=== PATIENT | male | born 1945 | race Caucasian/White ===

== ENCOUNTER 2018-04-20 11:30 | Outpatient (RCR) | payer MEDICARE, BC ==
[2015-08-11 16:30] VITALS: BP 130/84
[~2018-04-20 11:30] MED LIST: AMOXICILLIN 8751 TAB PO; CEPHALEXIN500 M1 PO; GOOD SENSE ASP325 M1 PO; ZOCOR5 MG PO
== END 2018-04-20 12:00 | disposition home or self-care (01) ==
LOC: PT 11:30
DX: M17.11 Unilateral primary osteoarthritis, right knee (principal)
CPT/HCPCS: G8978-GP; G8979-GP

== ENCOUNTER → 2018-05-05 | Outpatient (CLI) | payer MEDICARE, BC ==
[2015-08-11 16:30] VITALS: BP 130/84
== END ==
LOC: RAD 14:11
DX: R22.41 Localized swelling, mass and lump, right lower limb (principal)

== ENCOUNTER 2018-06-22 11:00 | Outpatient (RCR) | payer MEDICARE, BC ==
[2015-08-11 16:30] VITALS: BP 130/84
== END 2018-06-22 11:30 | disposition home or self-care (01) ==
LOC: PT 11:00
DX: Z47.1 Aftercare following joint replacement surgery (principal); Z96.651 Presence of right artificial knee joint
CPT/HCPCS: G8978-GP; G8979-GP

== ENCOUNTER → 2020-12-23 | Outpatient (CLI) | payer MEDICARE, BC ==
[2015-08-11 16:30] VITALS: BP 130/84
[2020-12-23 12:03] LABS: HEMATOCRIT 43.3 % (42.0-52.0); HEMOGLOBIN 14.2 g/dL (13.5-18.0); MEAN PLATELET VOLUME 9.4 fl (7.4-10.4); RED BLOOD COUNT 4.8 M/mm3 (4.20-5.60); RED CELL DISTRIBUTION WIDTH 14.1 % (11.5-14.5); WHITE BLOOD COUNT 9.8 K/mm3 (4.8-10.8)
[2020-12-23 12:07] LABS: POTASSIUM 3.8 mmol/L (3.5-5.1)
[2020-12-23 12:08] LABS: CALCIUM 9.3 mg/dL (8.3-10.5)
== END ==
LOC: RAD 11:37
DX: R06.02 Shortness of breath (principal)

== ENCOUNTER → 2020-12-29 | Outpatient (CLI) | payer MEDICARE, BC ==
[2015-08-11 16:30] VITALS: BP 130/84
== END ==
LOC: VAS 10:59
DX: R06.02 Shortness of breath (principal)

== ENCOUNTER 2022-03-01 08:43 | Emergency (ER) | payer MEDICARE, BC ==
[2022-03-01 08:52] VITALS: BP 130/85
== END 2022-03-01 09:29 | disposition home or self-care (01) ==
LOC: ED 08:43
DX: S09.90XA Unspecified injury of head, initial encounter (principal); S00.81XA Abrasion of other part of head, initial encounter; Z28.310 Unvaccinated for COVID-19; W01.0XXA Fall on same level from slipping, tripping and stumbling without subsequent striking against object, initial encounter

== ENCOUNTER → 2022-03-01 | Outpatient (CLI) | payer MEDICARE, BC | LOC: VAS 13:55 → RAD 13:55 | DX: I25.810 Atherosclerosis of coronary artery bypass graft(s) without angina pectoris (principal); I71.2 Thoracic aortic aneurysm, without rupture ==